=== PATIENT | female | born 1945 | race Two or more races ===

== ENCOUNTER 2022-03-09 08:00 | Outpatient (CLI) | payer OTHER | END 2022-03-09 08:30 | disposition home or self-care (01) | LOC: PPH VACUNA 08:00 | PROVIDERS: ATTEND Emergency Medicine Pediatric Emergency Medicine | DX: Z23 Encounter for immunization (principal) ==

== ENCOUNTER 2022-12-21 11:18 | Outpatient (CLI) | payer OTHER | END 2022-12-21 11:33 | disposition home or self-care (01) | LOC: PPH VACUNA 11:18 | PROVIDERS: ATTEND Emergency Medicine Pediatric Emergency Medicine | DX: Z23 Encounter for immunization (principal) ==

== ENCOUNTER 2025-03-16 07:03 | Outpatient (CLI) | payer OTHER | END 2025-03-16 07:07 | disposition home or self-care (01) | LOC: TOM 07:03 | PROVIDERS: ATTEND Internal Medicine Gastroenterology | DX: K56.600 Partial intestinal obstruction, unspecified as to cause (principal); R77.2 Abnormality of alphafetoprotein; Z86.0100 Personal history of colon polyps, unspecified ==